=== PATIENT | male | born 1955 | race African-American/Black ===

== ENCOUNTER 2017-03-06 12:13 | Inpatient (IN) | payer OTHER ==
[2017-03-06 14:06] VITALS: BMI 23.8
--- NOTE | 2017-03-06 17:11 | HP ---
Admission [facility] Chief Complaint: I WANT TO GO TO REHAB Allergies/Adverse Reactions: Allergies Allergy/AdvReac Type Severity Reaction Status Date / Time quinine Allergy Severe Itching Verified 03/06/17 14:08 History of Present Illness: 61 YEARS OLD MALE WITH LONG HISTORY OF ALCOHOL, COCAINE, NICOTINE DEPENDENCE, HAS HYPERTENSION, HYPERTHYROID, ARTHRITIS OF BOTH KNEES POSITIVE PPD AND SCHIZOAFFECTIVE DISORDER IS ADMITTED TO REHAB Exam Limitations: No Limitations - Ebola screening Have you traveled outside of the country in the last 21 days: No Have you had contact with anyone from an Ebola affected area: No Have you been sick,other than usual withdrawal symptoms: No Do you have a fever: No - Review of Systems Constitutional: Loss of Appetite, Unintentional Wgt. Loss, Unexplained wgt Loss EENT: reports: Blurred Vision (EYE GLASSES), Dental Problems (UPPER AND LOWER) Respiratory: reports: No Symptoms reported Cardiac: reports: Other (MURMUR SINCE ) GI: reports: Poor Appetite : reports: No Symptoms Reported Musculoskeletal: reports: Joint Pain (BOTH KNEES ARTHRITIS) Integumentary: reports: No Symptoms Reported Neuro: reports: No Symptoms reported Endocrine: reports: Unexplained Weight Loss Hematology: reports: No Symptoms Reported Psychiatric: reports: Judgement Intact, Orientated x3, Anxious, Depressed Other Systems: Reviewed and Negative Patient History - Patient Medical History Hx Anemia: Yes Hx Asthma: No Hx Chronic Obstructive Pulmonary Disease (COPD): No Hx Cancer: No Hx Cardiac Disorders: No Hx Congestive Heart Failure: No Hx Hypertension: Yes Hx Hypercholesterolemia: No Hx Pacemaker: No HX Cerebrovascular Accident: No Hx Seizures: No Hx Dementia: No Hx Diabetes: No Hx Gastrointestinal Disorders: No Hx Liver Disease: No Hx Genitourinary Disorders: No Hx Sexually Transmitted Disorders: No Hx Renal Disease (ESRD): No Hx Thyroid Disease: Yes Hx Human Immunodeficiency Virus (HIV): No Hx Hepatitis C: No Hx Depression: No Hx Suicide Attempt: Yes (2000 overdose) Hx Bipolar Disorder: No Hx Schizophrenia: Yes - Patient Surgical History Past Surgical History: Yes Hx Neurologic Surgery: No Hx Cataract Extraction: No Hx Cardiac Surgery: No Hx Lung Surgery: No Hx Breast Surgery: No Hx Breast Biopsy: No Hx Abdominal Surgery: No Hx Appendectomy: No Hx Cholecystectomy: No Hx Genitourinary Surgery: No Hx Orthopedic Surgery: No Other Surgical History: 1984 oral surgery/1994 left lymph node removed Anesthesia Reaction: No - PPD History Previous Implant?: Yes Documented Results: Positive w/o proof Implanted On Prior R Admission?: No PPD to be Administered?: No - Smoking Cessation Smoking history: Current every day smoker Have you smoked in the past 12 months: Yes Aproximately how many cigarettes per day: 10 Cigars Per Day: 0 Hx Chewing Tobacco Use: No Initiated information on smoking cessation: Yes 'Breaking Loose' booklet given: 03/06/17 - Substance & Tx. History Hx Alcohol Use: Yes Hx Substance Use: Yes Substance Use Type: Alcohol, Cocaine Hx Substance Use Treatment: Yes ([facility] 03/07/17 DETOX) - Substances Abused Alcohol Route: Oral Frequency: Daily Amount used: 4-5 40 OZ BEERS Age of first use: 19 Date of Last Use: 03/01/17 Crack Route: Smoking Frequency: Daily Amount used: $30-40 Age of first use: 30 Date of Last Use: 02/28/17 Family Disease History - Family Disease History Family Disease History: [place]: Father (), Mother (), Other: Father , Mother, Brother ( hiv), Sister (/alcohol) Admission Physical Exam [facility] - Vital Signs Vital Signs: Vital Signs - 24 hr 03/06/17 03/06/17 13:29 13:59 Temperature 98.3 F 97.3 F L Pulse Rate 87 87 Respiratory 18 18 Rate Blood Pressure 140/80 140/80 - Physical General Appearance: Yes: No Apparent Distress, Appropriately Dressed, Thin HEENTM: Yes: Hearing grossly Normal, Normal ENT Inspection, Normocephalic, Normal Voice, Other (PRESCRIPTION EYE GLASSES) Respiratory: Yes: Chest Non-Tender, Lungs Clear, Normal Breath Sounds, No Respiratory Distress, No Accessory Muscle Use Neck: Yes: Supple, Trachea in good position Breast: Yes: Breasts Symetrical Cardiology: Yes: Regular Rhythm, Regular Rate, S1, S2, Murmur Abdominal: Yes: Normal Bowel Sounds, Non Tender, Soft Genitourinary: Yes: Within Normal Limits Back: Yes: Normal Inspection Musculoskeletal: Yes: full range of Motion, Gait Steady Extremities: Yes: Normal Inspection, Normal Range of Motion, Non-Tender Neurological: Yes: Fully Oriented, Alert, Motor Strength 5/5, Normal Response, Depressed Affect Integumentary: Yes: Warm Lymphatic: Yes: Within Normal Limits - Diagnostic (1) Alcohol dependence with uncomplicated withdrawal Current Visit: Yes Status: Acute (2) Cocaine dependence, uncomplicated Current Visit: Yes Status: Chronic (3) Positive PPD, treated Current Visit: Yes Status: Suspected (4) Arthritis of both knees Current Visit: Yes Status: Chronic (5) Hyperthyroidism Current Visit: Yes Status: Chronic (6) Hypertension Current Visit: Yes Status: Chronic Qualifiers: Hypertension type: essential hypertension Qualified Code(s): I10 - Essential (primary) hypertension; I10 - Essential (primary) hypertension; I10 - Essential (primary) hypertension (7) Nicotine dependence Current Visit: Yes Status: Acute Qualifiers: Nicotine product type: cigarettes Substance use status: in withdrawal Qualified Code(s): F17.213 - Nicotine dependence, cigarettes, with withdrawal; F17.213 - Nicotine dependence, cigarettes, with withdrawal (8) Weight loss Current Visit: Yes Status: Acute (9) Schizoaffective disorder Current Visit: Yes Status: Suspected Qualifiers: Schizoaffective disorder type: depressive Qualified Code(s): F25.1 - Schizoaffective disorder, depressive type; F25.1 - Schizoaffective disorder, depressive type; F25.1 - Schizoaffective disorder, depressive type; F25.1 - Schizoaffective disorder, depressive type Cleared for Admission [facility] - Detox or Rehab [facility] Level of Care: Observation Bed Detox Regimen/Protocol: Not Applicable Claeared for Rehab Admission: Yes [facility] Breath Alcohol Content Breath Alcohol Content: 0 Urine Drug Screen - Control Is Test Valid: Yes - Results Drug Screen Negative: Yes Inpatient Rehab Admission - Initial Determination Are CD services needed?: Yes Free of communicable disease: Yes Not in need of hospitalization: Yes - Rehab Admission Criteria Previous failed treatment: Yes Poor recovery environment: Yes Comorbidities: Yes Lacks judgement: No Patient is meeting Inpatient Rehab admission criteria:: Yes
[2017-03-06] MEDS ORDERED: LOPERAMIDE HCL 2 MG CAPSULE PO PRN (17:24)
[2017-03-06] MEDS ORDERED: guaiFENesin/D-METHORPHAN HB 10 ML UNIT-DOSE CUPS PO PRN (17:24)
[2017-03-06] MEDS ORDERED: MAGNESIUM CITRATE 300 ML BOTTLE PO PRN (17:24)
[2017-03-06] MEDS ORDERED: hydrOXYzine PAMOATE 50 MG CAPSULE (FP) PO PRN (17:24)
[2017-03-06] MEDS ORDERED: MENTHOL/PHENOL 1 EACH UD MM PRN (17:24)
[2017-03-06] MEDS ORDERED: NICOTINE 14 MG/24 HOURS TOPICAL PATCH TD PRN (17:24)
[2017-03-06] MEDS ORDERED: MAGNESIUM HYDROX 2400MG/30ML ORAL SUSPENSION 30 ML CUP PO PRN (17:24)
[2017-03-06] MEDS ORDERED: P-EPHED 60MG/TRIPROLIDI 2.5MG TABLET PO PRN (17:24)
[2017-03-06] MEDS ORDERED: NICOTINE POLACRILEX 2 MG GUM BUC PRN (17:24)
[2017-03-06] MEDS ORDERED: ACETAMINOPHEN 325 MG TABLET (FP) PO PRN (17:24)
[2017-03-06] MEDS: CLOTRIMAZOLE 1% CREAM 15 GM TUBE TP SCH (21:49)
[2017-03-06] MEDS: GABAPENTIN 300 MG CAPSULE (FP) PO SCH (21:50)
[2017-03-06] MEDS: traZODone HCL 100 MG TABLET (FP) PO SCH (21:50)
[2017-03-06] MEDS: risperiDONE 1 MG TABLET (FP) PO SCH (21:51)
[2017-03-06] MEDS ORDERED: GABAPENTIN 300 MG CAPSULE (FP) PO SCH (22:00)
[2017-03-06 22:15] LABS: URINE APPEARANCE CLEAR; URINE BILIRUBIN NEGATIVE (NEGATIVE); URINE BLOOD NEGATIVE (NEGATIVE); URINE COLOR STRAW; URINE GLUCOSE (UA) NEGATIVE (NEGATIVE); URINE KETONE NEGATIVE (NEGATIVE); URINE NITRITE NEGATIVE (NEGATIVE); URINE PROTEIN NEGATIVE (NEGATIVE); URINE UROBILINOGEN NEGATIVE mg/dL (0.2-1.0)
[2017-03-06 22:53] LABS: URINE LEUK ESTERASE Negative (NEGATIVE)
[2017-03-06] MEDS: THIAMINE HCL 100 MG TABLET (FP) PO SCH (23:50)
[2017-03-07 09:53] LABS: MCH 27.8 pg (25.7-33.7); MCHC 32.6 g/dl (32.0-35.9); MEAN CELL VOLUME 85.3 fl (80-96); MEAN PLT VOLUME 9.9 fl (7.5-11.1); PLATELET COUNT 151 K/MM3 (134-434); RDW 13.8 % (11.9-15.9); WHITE BLOOD COUNT 5.7 K/mm3 (4.0-10.0)
[2017-03-07 09:55] LABS: ALBUMIN 3.7 g/dl (3.4-5.0); GLUCOSE,RANDOM 75 mg/dL (74-106)
[2017-03-07] MEDS ORDERED: risperiDONE 2 MG TABLET PO SCH (10:00)
[2017-03-07 10:09] LABS: ALK PHOS 77 U/L (45-117); ANION GAP 6 (8-16); BILIRUBIN,TOTAL 0.5 mg/dL (0.2-1.0); CALCIUM 9.4 mg/dL (8.5-10.1); CO2 29 mmol/L (21-32); CREATININE 1.2 mg/dL (0.7-1.3); SGOT/AST 16 U/L (15-37); SGPT/ALT 29 U/L (12-78); TOT PROT 6.9 g/dl (6.4-8.2)
[2017-03-07] MEDS: HYDROCHLOROTHIAZIDE 25 MG TABLET (FP) PO SCH (10:12)
[2017-03-07] MEDS: PRENATAL VITAMINS W/ FOLIC ACID TABLET (FP) PO SCH (10:13)
[2017-03-07] MEDS: LISINOPRIL 20 MG TABLET (FP) PO SCH (10:13)
[2017-03-07] MEDS: GABAPENTIN 300 MG CAPSULE (FP) PO SCH ×3 (10:13→21:30)
[2017-03-07] MEDS: CLOTRIMAZOLE 1% CREAM 15 GM TUBE TP SCH ×2 (10:14→21:30)
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
[2017-03-07] MEDS: traZODone HCL 100 MG TABLET (FP) PO SCH (21:30)
[2017-03-07] MEDS: risperiDONE 1 MG TABLET (FP) PO SCH (21:30)
[2017-03-07] MEDS: THIAMINE HCL 100 MG TABLET (FP) PO SCH (21:30)
[2017-03-07] MEDS: diphenhydrAMINE HCL 50 MG CAPSULE PO PRN (21:31)
[2017-03-08] MEDS: PRENATAL VITAMINS W/ FOLIC ACID TABLET (FP) PO SCH (10:14)
[2017-03-08] MEDS: risperiDONE 1 MG TABLET (FP) PO SCH ×2 (10:14→21:26)
[2017-03-08] MEDS: LISINOPRIL 20 MG TABLET (FP) PO SCH (10:14)
[2017-03-08] MEDS: GABAPENTIN 300 MG CAPSULE (FP) PO SCH ×3 (10:15→21:26)
[2017-03-08] MEDS: CLOTRIMAZOLE 1% CREAM 15 GM TUBE TP SCH ×2 (10:15→21:27)
[2017-03-08] MEDS: HYDROCHLOROTHIAZIDE 25 MG TABLET (FP) PO SCH (10:16)
[2017-03-08] MEDS: THIAMINE HCL 100 MG TABLET (FP) PO SCH (21:26)
[2017-03-08] MEDS: traZODone HCL 100 MG TABLET (FP) PO SCH (21:26)
[2017-03-09] MEDS: GABAPENTIN 300 MG CAPSULE (FP) PO SCH ×3 (10:14→21:34)
[2017-03-09] MEDS: HYDROCHLOROTHIAZIDE 25 MG TABLET (FP) PO SCH (10:14)
[2017-03-09] MEDS: risperiDONE 1 MG TABLET (FP) PO SCH ×2 (10:14→21:35)
[2017-03-09] MEDS: PRENATAL VITAMINS W/ FOLIC ACID TABLET (FP) PO SCH (10:14)
[2017-03-09] MEDS: CLOTRIMAZOLE 1% CREAM 15 GM TUBE TP SCH ×2 (10:15→21:37)
[2017-03-09] MEDS: LISINOPRIL 20 MG TABLET (FP) PO SCH (10:15)
--- NOTE | 2017-03-09 17:38 | EKG ---
Test Reason : Blood Pressure : / mmHG Vent. Rate : 064 BPM Atrial Rate : 064 BPM P-R Int : 192 ms QRS Dur : 096 ms QT Int : 426 ms P-R-T Axes : 066 -04 -33 degrees QTc Int : 439 ms NORMAL SINUS RHYTHM T WAVE ABNORMALITIES IN II III aVF AND V5-V6 ABNORMAL ECG NO PREVIOUS ECGS AVAILABLE REPEAT EKG IF CLINICALLY INDICATED Confirmed by SANDRA NAVARRETE MD ([id number]) on 03/09/2017 5:37:44 PM Referred By: Addis Champagne Confirmed By:SANDRA NAVARRETE MD
[2017-03-09] MEDS: traZODone HCL 100 MG TABLET (FP) PO SCH (21:34)
[2017-03-09] MEDS: THIAMINE HCL 100 MG TABLET (FP) PO SCH (21:34)
[2017-03-10] MEDS: HYDROCHLOROTHIAZIDE 25 MG TABLET (FP) PO SCH (10:23)
[2017-03-10] MEDS: LISINOPRIL 20 MG TABLET (FP) PO SCH (10:23)
[2017-03-10] MEDS: GABAPENTIN 300 MG CAPSULE (FP) PO SCH ×3 (10:23→21:29)
[2017-03-10] MEDS: PRENATAL VITAMINS W/ FOLIC ACID TABLET (FP) PO SCH (10:23)
[2017-03-10] MEDS: risperiDONE 1 MG TABLET (FP) PO SCH ×3 (11:33→21:29)
[2017-03-10] MEDS: CLOTRIMAZOLE 1% CREAM 15 GM TUBE TP SCH ×2 (11:33→21:30)
[2017-03-10] MEDS: IBUPROFEN 400 MG TABLET (FP) PO PRN (15:43)
[2017-03-10] MEDS: traZODone HCL 100 MG TABLET (FP) PO SCH (21:29)
[2017-03-10] MEDS: THIAMINE HCL 100 MG TABLET (FP) PO SCH (21:29)
[2017-03-11] MEDS: LISINOPRIL 20 MG TABLET (FP) PO SCH (10:41)
[2017-03-11] MEDS: HYDROCHLOROTHIAZIDE 25 MG TABLET (FP) PO SCH (10:42)
[2017-03-11] MEDS: PRENATAL VITAMINS W/ FOLIC ACID TABLET (FP) PO SCH (10:43)
[2017-03-11] MEDS: CLOTRIMAZOLE 1% CREAM 15 GM TUBE TP SCH ×2 (10:43→21:32)
[2017-03-11] MEDS: GABAPENTIN 300 MG CAPSULE (FP) PO SCH ×3 (10:43→21:31)
[2017-03-11] MEDS: risperiDONE 1 MG TABLET (FP) PO SCH ×2 (10:44→21:31)
[2017-03-11] MEDS: THIAMINE HCL 100 MG TABLET (FP) PO SCH (21:31)
[2017-03-11] MEDS: traZODone HCL 100 MG TABLET (FP) PO SCH (21:31)
[2017-03-11] MEDS: diphenhydrAMINE HCL 50 MG CAPSULE PO PRN (21:32)
[2017-03-12] MEDS: CLOTRIMAZOLE 1% CREAM 15 GM TUBE TP SCH ×2 (10:25→21:19)
[2017-03-12] MEDS: risperiDONE 1 MG TABLET (FP) PO SCH ×2 (10:25→21:18)
[2017-03-12] MEDS: GABAPENTIN 300 MG CAPSULE (FP) PO SCH ×3 (10:25→21:18)
[2017-03-12] MEDS: LISINOPRIL 20 MG TABLET (FP) PO SCH (10:25)
[2017-03-12] MEDS: HYDROCHLOROTHIAZIDE 25 MG TABLET (FP) PO SCH (10:25)
[2017-03-12] MEDS: PRENATAL VITAMINS W/ FOLIC ACID TABLET (FP) PO SCH (10:25)
[2017-03-12] MEDS: MAG HYDROX/AL HYDROX/SIMETH 30 ML UNIT-DOSE CUP PO PRN ×2 (15:32→22:04)
[2017-03-12] MEDS: traZODone HCL 100 MG TABLET (FP) PO SCH (21:18)
[2017-03-12] MEDS: THIAMINE HCL 100 MG TABLET (FP) PO SCH (21:18)
[2017-03-13] MEDS ORDERED: INSULIN (NOVOLOG MIX 70/30) 100 UNITS/ML MDV SQ ONE (06:32)
[2017-03-13] MEDS: HYDROCHLOROTHIAZIDE 25 MG TABLET (FP) PO SCH (10:13)
[2017-03-13] MEDS: PRENATAL VITAMINS W/ FOLIC ACID TABLET (FP) PO SCH (10:13)
[2017-03-13] MEDS: CLOTRIMAZOLE 1% CREAM 15 GM TUBE TP SCH ×2 (10:14→21:22)
[2017-03-13] MEDS: risperiDONE 1 MG TABLET (FP) PO SCH ×2 (10:14→21:21)
[2017-03-13] MEDS: GABAPENTIN 300 MG CAPSULE (FP) PO SCH ×3 (10:14→21:21)
[2017-03-13] MEDS: LISINOPRIL 20 MG TABLET (FP) PO SCH (10:14)
[2017-03-13] MEDS: MAG HYDROX/AL HYDROX/SIMETH 30 ML UNIT-DOSE CUP PO PRN (16:43)
[2017-03-13] MEDS: traZODone HCL 100 MG TABLET (FP) PO SCH (21:21)
[2017-03-13] MEDS: THIAMINE HCL 100 MG TABLET (FP) PO SCH (21:21)
[2017-03-14] MEDS: HYDROCHLOROTHIAZIDE 25 MG TABLET (FP) PO SCH (10:09)
[2017-03-14] MEDS: PRENATAL VITAMINS W/ FOLIC ACID TABLET (FP) PO SCH (10:09)
[2017-03-14] MEDS: risperiDONE 1 MG TABLET (FP) PO SCH ×2 (10:09→21:25)
[2017-03-14] MEDS: LISINOPRIL 20 MG TABLET (FP) PO SCH (10:10)
[2017-03-14] MEDS: GABAPENTIN 300 MG CAPSULE (FP) PO SCH ×3 (10:10→21:25)
[2017-03-14] MEDS: CLOTRIMAZOLE 1% CREAM 15 GM TUBE TP SCH ×2 (11:57→21:25)
[2017-03-14] MEDS: THIAMINE HCL 100 MG TABLET (FP) PO SCH (21:25)
[2017-03-14] MEDS: traZODone HCL 100 MG TABLET (FP) PO SCH (21:25)
[2017-03-14] MEDS: diphenhydrAMINE HCL 50 MG CAPSULE PO PRN (21:26)
[2017-03-15] MEDS: PRENATAL VITAMINS W/ FOLIC ACID TABLET (FP) PO SCH (10:32)
[2017-03-15] MEDS: LISINOPRIL 20 MG TABLET (FP) PO SCH (10:33)
[2017-03-15] MEDS: CLOTRIMAZOLE 1% CREAM 15 GM TUBE TP SCH ×2 (10:33→21:18)
[2017-03-15] MEDS: GABAPENTIN 300 MG CAPSULE (FP) PO SCH ×3 (10:33→21:18)
[2017-03-15] MEDS: HYDROCHLOROTHIAZIDE 25 MG TABLET (FP) PO SCH (10:33)
[2017-03-15] MEDS: risperiDONE 1 MG TABLET (FP) PO SCH ×2 (10:33→21:18)
[2017-03-15] MEDS: THIAMINE HCL 100 MG TABLET (FP) PO SCH (21:18)
[2017-03-15] MEDS: diphenhydrAMINE HCL 50 MG CAPSULE PO PRN (21:18)
[2017-03-15] MEDS: traZODone HCL 100 MG TABLET (FP) PO SCH (21:18)
[2017-03-16] MEDS: LISINOPRIL 20 MG TABLET (FP) PO SCH (10:16)
[2017-03-16] MEDS: risperiDONE 1 MG TABLET (FP) PO SCH ×2 (10:16→21:20)
[2017-03-16] MEDS: CLOTRIMAZOLE 1% CREAM 15 GM TUBE TP SCH ×2 (10:16→21:20)
[2017-03-16] MEDS: HYDROCHLOROTHIAZIDE 25 MG TABLET (FP) PO SCH (10:16)
[2017-03-16] MEDS: PRENATAL VITAMINS W/ FOLIC ACID TABLET (FP) PO SCH (10:16)
[2017-03-16] MEDS: GABAPENTIN 300 MG CAPSULE (FP) PO SCH ×3 (10:16→21:20)
[2017-03-16] MEDS: IBUPROFEN 400 MG TABLET (FP) PO PRN (12:47)
[2017-03-16] MEDS: traZODone HCL 100 MG TABLET (FP) PO SCH (21:20)
[2017-03-16] MEDS: THIAMINE HCL 100 MG TABLET (FP) PO SCH (21:20)
[2017-03-16] MEDS: diphenhydrAMINE HCL 50 MG CAPSULE PO PRN (21:20)
[2017-03-17 06:43] VITALS: BP 118/71; PULSE 66; TEMP 97.8
[2017-03-17] MEDS: CLOTRIMAZOLE 1% CREAM 15 GM TUBE TP SCH (09:56)
[2017-03-17] MEDS: PRENATAL VITAMINS W/ FOLIC ACID TABLET (FP) PO SCH (09:56)
[2017-03-17] MEDS: GABAPENTIN 300 MG CAPSULE (FP) PO SCH (09:56)
[2017-03-17] MEDS: LISINOPRIL 20 MG TABLET (FP) PO SCH (09:56)
[2017-03-17] MEDS: risperiDONE 1 MG TABLET (FP) PO SCH (09:56)
[2017-03-17] MEDS: HYDROCHLOROTHIAZIDE 25 MG TABLET (FP) PO SCH (09:57)
--- NOTE | 2017-03-17 10:40 | PN ---
Psychiatric Progress Note Vital Signs: Vital Signs Period Temp Pulse Resp BP Sys/Saba Pulse Ox Last 24 Hr 97.8 F 66 16-16 118/71 Date of Session: 03/17/17 Chief Complaint:: discharge visit HPI: Patient has addressed alcohol, cocaine dependence comorbid Schzioaffective disorder. ROS: HTN and Arthritis medically managed. Current Medications: Active Medications Generic Name Dose Route Start Last Admin Trade Name Freq PRN Reason Stop Dose Admin Acetaminophen 650 mg 03/06/17 17:24 Tylenol - PO Q4H PRN PAIN Al Hydroxide/Mg Hydroxide 30 ml 03/06/17 17:24 03/13/17 16:43 Mylanta Oral Suspension - PO 30 ml Q6H PRN Administration DYSPEPSIA Clotrimazole 1 applic 03/06/17 22:00 03/17/17 09:56 Lotrimin 1% Cream - TP Not Given BID JESSICA Diphenhydramine HCl 50 mg 03/06/17 22:00 03/16/17 21:20 Benadryl - PO 50 mg HSMR1 PRN Administration INSOMNIA Eucalyptus/Menthol/Phenol/Sorbitol 1 each 03/06/17 17:24 Cepastat Lozenge - MM Q4H PRN SORE THROAT Gabapentin 900 mg 03/06/17 22:00 03/16/17 21:20 Neurontin - PO 900 mg HS JESSICA Administration Gabapentin 600 mg 03/07/17 10:00 03/17/17 09:56 Neurontin - PO 600 mg BID@1000,1500 JESSICA Administration Guaifenesin 10 ml 03/06/17 17:24 Robitussin Dm - PO Q6H PRN COUGH Hydrochlorothiazide 25 mg 03/07/17 10:00 03/17/17 09:57 Hctz - PO 25 mg DAILY JESSICA Administration Hydroxyzine Pamoate 50 mg 03/06/17 17:24 Vistaril - PO Q4H PRN AGITATION Ibuprofen 400 mg 03/06/17 17:24 03/16/17 12:47 Motrin - PO 400 mg Q6H PRN Administration SEVERE PAIN Lisinopril 40 mg 03/07/17 10:00 03/17/17 09:56 Prinivil PO 40 mg DAILY JESSICA Administration Loperamide HCl 4 mg 03/06/17 17:24 Imodium - PO Q6H PRN DIARRHEA Magnesium Citrate 300 ml 03/06/17 17:24 Citroma - PO Q48H PRN CONSTIPATION Magnesium Hydroxide 30 ml 03/06/17 17:24 03/13/17 07:08 Milk Of Magnesia - PO 30 ml DAILY PRN Administration CONSTIPATION Nicotine 14 mg 03/06/17 17:24 Nicoderm Patch - TD DAILY PRN WITHDRAWAL(CONT SUBST) Nicotine Polacrilex 2 mg 03/06/17 17:24 Nicorette Gum - BUC Q2H PRN NICOTINE REPLACEMENT RX Multivit/Folic Acid/Iron 1 tab 03/07/17 10:00 03/17/17 09:56 Vitamins ([facility]) - PO 1 tab DAILY JESSICA Administration Pseudoephedrine/Triprolidine 1 combo 03/06/17 17:24 Actifed - PO TID PRN NASAL CONGESTION Risperidone 1 mg 03/06/17 22:00 03/16/17 21:20 Risperdal - PO 1 mg HS JESSICA Administration Risperidone 1 mg 03/08/17 10:00 03/17/17 09:56 Risperdal - PO 1 mg DAILY JESSICA Administration Thiamine HCl 100 mg 03/06/17 22:00 03/16/17 21:20 Vitamin B1 - PO 100 mg HS JESSICA Administration Trazodone HCl 100 mg 03/06/17 22:00 03/16/17 21:20 Desyrel - PO 100 mg HS JESSICA Administration Current Side Effect: No Lab tests ordered: No Lab tests reviewed: Yes Provider note:: Patient has ocmplted today this program and met his idetntified goals, will contontinue to address his isssues at [facility] outpatient Program, He focused on insigts he gained in this treatment and on importance of changning attitudes for the utilization of supports to prevent relapses. Medications well tolerated, patient reports he feeling better, scripts ptovided for 30 days, stable for discharge today. Total face to face time:: 30 Mental Status Exam - Mental Status Exam Alert and Oriented to: Time, Place, Person Cognitive Function: Good Patient Appearance: Well Groomed Mood: Hopeful Affect: Appropriate, Mood Congruent Patient Behavior: Appropriate, Cooperative Speech Pattern: Clear, Appropriate Voice Loudness: Normal Thought Process: Intact, Goal Oriented Thought Disorder: Not Present Hallucinations: Denies Suicidal Ideation: Denies Homicidal Ideation: Denies Insight/Judgement: Fair Sleep: Fair Appetite: Fair Muscle strength/Tone: Normal Gait/Station: Normal Psychiatric Treatment Plan - Problem List (1) Nicotine dependence Current Visit: Yes Qualifiers: Nicotine product type: cigarettes Substance use status: in withdrawal Qualified Code(s): F17.213 - Nicotine dependence, cigarettes, with withdrawal; F17.213 - Nicotine dependence, cigarettes, with withdrawal (2) Hyperthyroidism Current Visit: Yes (3) Schizoaffective disorder Current Visit: Yes Qualifiers: Schizoaffective disorder type: depressive Qualified Code(s): F25.1 - Schizoaffective disorder, depressive type; F25.1 - Schizoaffective disorder, depressive type; F25.1 - Schizoaffective disorder, depressive type; F25.1 - Schizoaffective disorder, depressive type (4) Alcohol dependence Current Visit: Yes (5) Cocaine dependence Current Visit: Yes
== END 2017-03-17 11:45 | disposition home or self-care (01) | DRG 772 ==
LOC: YASAS 12:13 → Y5N 17:50
PROVIDERS: ADMIT Psychiatry & Neurology Psychiatry; ATTEND Psychiatry & Neurology Psychiatry
PROC: HZ42ZZZ Group Counseling for Substance Abuse Treatment, Cognitive-Behavioral (ICD-10-PCS; principal; 2017-03-06)
DX: F10.20 Alcohol dependence, uncomplicated (principal); F14.20 Cocaine dependence, uncomplicated; F17.213 Nicotine dependence, cigarettes, with withdrawal; F25.1 Schizoaffective disorder, depressive type; E05.90 Thyrotoxicosis, unspecified without thyrotoxic crisis or storm; I10 Essential (primary) hypertension; R76.11 Nonspecific reaction to tuberculin skin test without active tuberculosis; M13.862 Other specified arthritis, left knee; M13.861 Other specified arthritis, right knee; R01.1 Cardiac murmur, unspecified; Z87.898 Personal history of other specified conditions; Z88.8 Allergy status to other drugs, medicaments and biological substances; Z91.5 Personal history of self-harm
CPT/HCPCS: 36415; 71020-TC; 80053; 81003; 85027; 86593; 93005; 93010; J2794

== ENCOUNTER 2019-06-26 11:33 | Inpatient (IN) | payer OTHER ==
[~2019-06-26 11:33] MED LIST: chlordiazePOXIDE HCL 25 MG CAPSULE PO SCH
[2019-06-26 12:24] VITALS: BMI 22.4
--- NOTE | 2019-06-26 14:08 | HP ---
CIWA Score Nausea/Vomitin Muscle Tremors: 4-Moderate,w/Arms Extend Anxiety: 4-Mod. Anxious/Guarded Agitation: 1-Slight > Activity Paroxysmal Sweats: 1-Minimal Palms Moist Orientation: 1-Uncertain about Date Tacttile Disturbances: 1-Very Mild Itch/Numbness Auditory Disturbances: 0-None Visual Disturbances: 0-None Headache: 2-Mild CIWA-Ar Total Score: 16 - Admission Criteria [facility]ASAS Guidelines: Admission for Medically Managed Detox: Requires at least one of the followin. CIWA greater than 12 2. Seizures within the past 24 hours 3. Delirium tremens within the past 24 hours 4. Hallucinations within the past 24 hours 5. Acute intervention needed for co occurring medical disorder 6. Acute intervention needed for co occurring psychiatric disorder 7. Severe withdrawal that cannot be handled at a lower level of care (continued vomiting, continued diarrhea, abnormal vital signs) requiring intravenous medication and/or fluids 8. Patient presents the following: CIWA greater than 12 Admission Criteria Met: Admission criteria met Admitting History and Physical - Admission History Source: Patient, Medical Record Limitations to Obtaining History: No Limitations - Past Medical History Cardiovascular: Yes: HTN Gastrointestinal: Yes: GERD Psych: Yes: Addictions, Depression, Schizophrenia Musculoskeletal: Yes: Osteoarthritis Endocrine: Yes: Hyperthyroidism - Smoking History Smoking history: Current every day smoker Have you smoked in the past 12 months: Yes Aproximately how many cigarettes per day: 20 - Alcohol/Substance Use Hx Alcohol Use: Yes History of Substance Use: reports: Cocaine - Social History Usual Living Arrangement: Yes: Alone, Other (lives in assisted) ADL: Support Services (on disability) Admission ROS S - HPI Chief Complaint: I need help, I don't want to drink anymore - it's killing me - I miss my old life - I had a job years ago, I want my life to be in order Allergies/Adverse Reactions: Allergies Allergy/AdvReac Type Severity Reaction Status Date / Time quinine Allergy Severe Itching Verified 06/26/19 12:18 History of Present Illness: 63 yo gentleman here for detox from alcohol, also using cocaine. Last time here for treatment was 2016 - - states he has been going back and forth from [place]. Denies seizure, does have black outs. States he drinks first thing in the morning and gets sick if he does not (shakes, anxious). He is on disability for psychiatric reasons - sees psych at [facility] but not on medication currently. Exam Limitations: No Limitations - Ebola screening Have you traveled outside of the country in the last 21 days: No (N) Have you had contact with anyone from an Ebola affected area: No Do you have a fever: No - Review of Systems Constitutional: Loss of Appetite Respiratory: reports: No Symptoms reported Cardiac: reports: No Symptoms Reported GI: reports: Nausea, Poor Appetite, Indigestion, Abdominal cramping : reports: Frequency Musculoskeletal: reports: Joint Pain (knees) Integumentary: reports: Dryness Neuro: reports: Headache, Tremors Endocrine: reports: No Symptoms Reported Hematology: reports: No Symptoms Reported Psychiatric: reports: Judgement Intact, Mood/Affect Appropiate, Anxious Other Systems: Reviewed and Negative Patient History - Patient Medical History Hx Anemia: No Hx Asthma: No Hx Chronic Obstructive Pulmonary Disease (COPD): No Hx Cancer: No Hx Cardiac Disorders: No Hx Congestive Heart Failure: No Hx Hypertension: Yes (on meds) Hx Hypercholesterolemia: No Hx Pacemaker: No HX Cerebrovascular Accident: No Hx Seizures: No Hx Dementia: No Hx Diabetes: No Hx Gastrointestinal Disorders: No Hx Liver Disease: No Hx Genitourinary Disorders: No Hx Sexually Transmitted Disorders: Yes (gonorrhea ) Hx Renal Disease (ESRD): No Hx Thyroid Disease: Yes (non adherent for years with methimazol) Hx Human Immunodeficiency Virus (HIV): No Hx Hepatitis C: No Hx Depression: Yes (hospitalized years ago) Hx Suicide Attempt: Yes (2000 overdose) Hx Bipolar Disorder: No Hx Schizophrenia: Yes (no meds currently, sees psych) - Patient Surgical History Past Surgical History: Yes Hx Neurologic Surgery: No Hx Cataract Extraction: No Hx Cardiac Surgery: No Hx Lung Surgery: No Hx Breast Surgery: No Hx Breast Biopsy: No Hx Abdominal Surgery: No Hx Appendectomy: No Hx Cholecystectomy: No Hx Genitourinary Surgery: No Hx Orthopedic Surgery: No Other Surgical History: 1984 oral surgery/1994 left lymph node in groin area removed Anesthesia Reaction: No - PPD History Previous Implant?: Yes Documented Results: Positive w/o proof Implanted On Prior [facility] Admission?: No Date: 03/07/17 (cxr negative) PPD to be Administered?: No - Reproductive History Patient is a Female of Child Bearing Age (11 -55 yrs old): No - Smoking Cessation Smoking history: Current every day smoker Have you smoked in the past 12 months: Yes Aproximately how many cigarettes per day: 20 Cigars Per Day: 0 Hx Chewing Tobacco Use: No Initiated information on smoking cessation: Yes 'Breaking Loose' booklet given: 06/26/19 (give on floor) - Substance & Tx. History Hx Alcohol Use: Yes Hx Substance Use: Yes Substance Use Type: Alcohol, Cocaine Hx Substance Use Treatment: Yes (detox, rehab) - Substances abused Alcohol Substance route: Oral Frequency: Daily Amount used: 6-8 (40 oz beers) Age of first use: 19 Date of last use: 06/25/19 Crack Substance route: Smoking Frequency: 3-6 times per week Amount used: $17/day Age of first use: 30 Date of last use: 06/25/19 Admission Physical Exam [facility] - Vital Signs Vital Signs: Vital Signs - 24 hr 06/26/19 12:21 Temperature 98.1 F Pulse Rate 66 Respiratory 18 Rate Blood Pressure 139/82 - Physical General Appearance: Yes: Nourished, Appropriately Dressed, Moderate Distress, Thin, Tremorous, Anxious HEENTM: Yes: EOMI, Hearing grossly Normal, Normocephalic, Normal Voice, Pharynx Normal Respiratory: Yes: Normal Breath Sounds Neck: Yes: No masses,lesions,Nodules, Supple Breast: Yes: Breast Exam Deferred Cardiology: Yes: Regular Rhythm, Regular Rate Abdominal: Yes: Flat, Soft Genitourinary: Yes: Frequency Back: Yes: Normal Inspection Musculoskeletal: Yes: full range of Motion, Gait Steady, Joint Stiffness (knee osteoarthritis) Extremities: Yes: Normal Inspection, Normal Range of Motion, Non-Tender, Tremors Neurological: Yes: Alert, Motor Strength 5/5, Normal Mood/Affect, Normal Response Integumentary: Yes: Normal Color, Dry, Warm Lymphatic: Yes: Within Normal Limits - Diagnostic (1) Alcohol dependence with uncomplicated withdrawal Current Visit: Yes Status: Chronic (2) Cocaine dependence Current Visit: Yes Status: Chronic Qualifiers: Substance use status: uncomplicated Qualified Code(s): F14.20 - Cocaine dependence, uncomplicated (3) Nicotine dependence Current Visit: Yes Status: Acute Qualifiers: Nicotine product type: cigarettes Substance use status: in withdrawal Qualified Code(s): F17.213 - Nicotine dependence, cigarettes, with withdrawal (4) Weight loss Current Visit: Yes Status: Chronic (5) Arthritis of both knees Current Visit: Yes Status: Chronic (6) Hypertension Current Visit: Yes Status: Chronic Qualifiers: Hypertension type: essential hypertension Qualified Code(s): I10 - Essential (primary) hypertension (7) Positive PPD, treated Current Visit: Yes Status: Chronic Cleared for Admission [facility] - Detox or Rehab S Level of Care: Medically Managed Detox Regimen/Protocol: Librium Breathalyzer - Breathalyzer Breathalyzer: 0 Inpatient Rehab Admission - Rehab Decision to Admit Inpatient rehab admission?: No
[2019-06-26] MEDS ORDERED: hydrOXYzine PAMOATE 25 MG CAPSULE (FP) PO PRN (14:22)
[2019-06-26] MEDS ORDERED: MENTHOL/PHENOL 1 EACH UD MM PRN (14:22)
[2019-06-26] MEDS ORDERED: MAG HYDROX/AL HYDROX/SIMETH 30 ML UNIT-DOSE CUP PO PRN (14:22)
[2019-06-26] MEDS ORDERED: IBUPROFEN 400 MG TABLET (FP) PO PRN (14:22)
[2019-06-26] MEDS ORDERED: ACETAMINOPHEN 325 MG TABLET (FP) PO PRN ×2 (14:22)
[2019-06-26] MEDS ORDERED: MAGNESIUM CITRATE 300 ML BOTTLE PO PRN (14:22)
[2019-06-26] MEDS ORDERED: chlordiazePOXIDE HCL 25 MG CAPSULE PO ONE (14:22)
[2019-06-26] MEDS ORDERED: BISMUTH SUBSALICYLATE 524 MG/30 ML UD PO PRN (14:22)
[2019-06-26] MEDS ORDERED: MAGNESIUM HYDROX 2400MG/30ML ORAL SUSPENSION 30 ML CUP PO PRN (14:22)
[2019-06-26] MEDS ORDERED: METHOCARBAMOL 500 MG TABLET PO PRN (14:22)
[2019-06-26] MEDS ORDERED: chlordiazePOXIDE HCL 25 MG CAPSULE PO PRN (14:22)
[2019-06-26] MEDS: NICOTINE 21 MG/24 HOURS TOPICAL PATCH TD SCH (16:50)
[2019-06-26] MEDS ORDERED: MELATONIN 5 MG TABLETS PO PRN (22:00)
[2019-06-26] MEDS: THIAMINE HCL 100 MG TABLET (FP) PO SCH (22:12)
[2019-06-27] MEDS: chlordiazePOXIDE HCL 25 MG CAPSULE PO SCH ×4 (06:31→22:11)
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
[2019-06-27] MEDS: LISINOPRIL 20 MG TABLET (FP) PO SCH (10:28)
[2019-06-27] MEDS: PRENATAL VITAMINS W/ FOLIC ACID TABLET (FP) PO SCH (10:28)
[2019-06-27] MEDS: HYDROCHLOROTHIAZIDE 25 MG TABLET (FP) PO SCH (10:29)
[2019-06-27] MEDS: NICOTINE 21 MG/24 HOURS TOPICAL PATCH TD SCH (10:29)
[2019-06-27] MEDS: amLODIPine BESYLATE 5 MG TABLET (FP) PO SCH (10:30)
[2019-06-27 11:07] LABS: HEMATOCRIT 36.7 % (35.4-49); HEMOGLOBIN 12.2 GM/dL (11.7-16.9); MCH 29.1 pg (25.7-33.7); MCHC 33.3 g/dl (32.0-35.9); MEAN CELL VOLUME 87.3 fl (80-96); MEAN PLT VOLUME 8.8 fl (7.5-11.1); PLATELET COUNT 141 K/MM3 (134-434); RDW 14.5 % (11.9-15.9); WHITE BLOOD COUNT 4.6 K/mm3 (4.0-10.0)
[2019-06-27 11:20] LABS: ALBUMIN 2.9 g/dl (3.4-5.0); BILIRUBIN,TOTAL 0.5 mg/dL (0.2-1); CALCIUM 8.5 mg/dL (8.5-10.1); CREATININE 1.1 mg/dL (0.55-1.3); POTASSIUM 3.7 mmol/L (3.5-5.1); TOT PROT 5.7 g/dl (6.4-8.2)
--- NOTE | 2019-06-27 12:16 | EKG ---
Test Reason : Blood Pressure : / mmHG Vent. Rate : 065 BPM Atrial Rate : 065 BPM P-R Int : 176 ms QRS Dur : 098 ms QT Int : 422 ms P-R-T Axes : 072 -22 -07 degrees QTc Int : 438 ms NORMAL SINUS RHYTHM INCOMPLETE RIGHT BUNDLE BRANCH BLOCK MODERATE VOLTAGE CRITERIA FOR LVH, MAY BE NORMAL VARIANT NONSPECIFIC T WAVE ABNORMALITY WHEN COMPARED WITH ECG OF 06-MAR-2017 21:49, NO SIGNIFICANT CHANGE WAS FOUND Confirmed by ALISSON HARMON MD ([id number]) on 06/27/2019 12:16:39 PM Referred By: Confirmed By:ALISSON HARMON MD
--- NOTE | 2019-06-27 13:00 | PN ---
S CIWA - CIWA Score Nausea/Vomitin-Mild Nausea/No Vomiting Muscle Tremors: 3 Anxiety: 3 Agitation: 3 Paroxysmal Sweats: 3 Orientation: 0-Oriented Tacttile Disturbances: 0-None Auditory Disturbances: 0-None Visual Disturbances: 0-None Headache: 0-None Present CIWA-Ar Total Score: 13 S Progress Note (SOAP) Subjective: Tremor, nervous, agitated Objective: 06/27/19 12:55 Last Vital Signs Temp Pulse Resp BP Pulse Ox 98.2 F 60 17 136/72 06/27/19 09:53 06/27/19 09:53 06/27/19 09:53 06/27/19 09:53 Elevated b/p noted: has htn, on medication Laboratory Tests 06/27/19 06/27/19 06:50 06:50 WBC 4.6 RBC 4.20 Hgb 12.2 Hct 36.7 MCV 87.3 MCH 29.1 MCHC 33.3 RDW 14.5 Plt Count 141 MPV 8.8 D Sodium 143 Potassium 3.7 Chloride 111 H Carbon Dioxide 28 Anion Gap 4 L BUN 12.0 Creatinine 1.1 Est GFR (CKD-EPI)AfAm 83.53 Est GFR (CKD-EPI)NonAf 72.07 Random Glucose 103 Calcium 8.5 Total Bilirubin 0.5 AST 24 ALT 38 Alkaline Phosphatase 72 Total Protein 5.7 L Albumin 2.9 L Labs reviewed Assessment: 06/27/19 12:56 Withdrawal sxs Plan: Continue detox Encouraged PO water intake HTN: on norvasc, HCTZ and Lisinopril (not sure why 3 antihypertensive class of medications), monitor b/p, follow up with PCP for management
--- NOTE | 2019-06-27 18:56 | PN ---
S Progress Note Note: Patient is referred for 2 small areas of sores on the lip, he has mild pain. He denies any other symptoms. Will leave open to air and monitor.
[2019-06-27] MEDS: THIAMINE HCL 100 MG TABLET (FP) PO SCH (22:11)
[2019-06-27] MEDS: traZODone HCL 50 MG TABLET (FP) PO SCH (22:11)
[2019-06-28] MEDS ORDERED: chlordiazePOXIDE HCL 10 MG CAPSULE PO PRN
[2019-06-28] MEDS: chlordiazePOXIDE HCL 10 MG CAPSULE PO SCH ×4 (06:07→22:00)
[2019-06-28] MEDS: LISINOPRIL 20 MG TABLET (FP) PO SCH (10:11)
[2019-06-28] MEDS: HYDROCHLOROTHIAZIDE 25 MG TABLET (FP) PO SCH (10:11)
[2019-06-28] MEDS: amLODIPine BESYLATE 5 MG TABLET (FP) PO SCH (10:11)
[2019-06-28] MEDS: NICOTINE 21 MG/24 HOURS TOPICAL PATCH TD SCH (10:12)
[2019-06-28] MEDS: PRENATAL VITAMINS W/ FOLIC ACID TABLET (FP) PO SCH (10:12)
[2019-06-28] MEDS ORDERED: guaiFENesin 200 MG/10 ML 10 ML UNIT-DOSE CUPS PO PRN (10:32)
--- NOTE | 2019-06-28 10:33 | PN ---
[facility] CIWA - CIWA Score Nausea/Vomitin-No Nausea/No Vomiting Muscle Tremors: None Anxiety: 1-Mildly Anxious Agitation: 0-Normal Activity Paroxysmal Sweats: 1-Minimal Palms Moist Orientation: 1-Uncertain about Date Tacttile Disturbances: 0-None Auditory Disturbances: 0-None Visual Disturbances: 0-None Headache: 0-None Present CIWA-Ar Total Score: 3 BHS Progress Note (SOAP) Subjective: Doing well, asking for treatment for fever blister on upper and lower lip. Describes lip at tingling/stings Objective: 06/28/19 10:26 Laboratory Last Values WBC 4.6 K/mm3 (4.0-10.0) 06/27/19 06:50 RBC 4.20 M/mm3 (4.00-5.60) 06/27/19 06:50 Hgb 12.2 GM/dL (11.7-16.9) 06/27/19 06:50 Hct 36.7 % (35.4-49) 06/27/19 06:50 MCV 87.3 fl (80-96) 06/27/19 06:50 MCH 29.1 pg (25.7-33.7) 06/27/19 06:50 MCHC 33.3 g/dl (32.0-35.9) 06/27/19 06:50 RDW 14.5 % (11.9-15.9) 06/27/19 06:50 Plt Count 141 K/MM3 (134-434) 06/27/19 06:50 MPV 8.8 fl (7.5-11.1) D 06/27/19 06:50 Sodium 143 mmol/L (136-145) 06/27/19 06:50 Potassium 3.7 mmol/L (3.5-5.1) 06/27/19 06:50 Chloride 111 mmol/L (98-107) H 06/27/19 06:50 Carbon Dioxide 28 mmol/L (21-32) 06/27/19 06:50 Anion Gap 4 MMOL/L (8-16) L 06/27/19 06:50 BUN 12.0 mg/dL (7-18) 06/27/19 06:50 Creatinine 1.1 mg/dL (0.55-1.3) 06/27/19 06:50 Est GFR (CKD-EPI)AfAm 83.53 06/27/19 06:50 Est GFR (CKD-EPI)NonAf 72.07 06/27/19 06:50 Random Glucose 103 mg/dL (74-106) 06/27/19 06:50 Calcium 8.5 mg/dL (8.5-10.1) 06/27/19 06:50 Total Bilirubin 0.5 mg/dL (0.2-1) 06/27/19 06:50 AST 24 U/L (15-37) 06/27/19 06:50 ALT 38 U/L (13-61) 06/27/19 06:50 Alkaline Phosphatase 72 U/L (45-117) 06/27/19 06:50 Total Protein 5.7 g/dl (6.4-8.2) L 06/27/19 06:50 Albumin 2.9 g/dl (3.4-5.0) L 06/27/19 06:50 RPR Titer Nonreactive (NONREACTIVE) 06/27/19 06:50 Vital Signs Temperature 98.2 F 06/28/19 09:27 Pulse Rate 68 06/28/19 09:27 Respiratory Rate 16 06/28/19 09:27 Blood Pressure 131/79 06/28/19 09:27 O2 Sat by Pulse Oximetry (%) Gnl: WDWN, in no distress MS: awake, alert, attentive, follows complex commands Resp: dry cough Motor: moves limbs well Skin: small ~ 3mm irregular lesion on upper and lower, midline, lip 06/28/19 10:33 Assessment: 06/28/19 10:28 1. Alcohol withdrawal 2. suspect oral Herpes lesions on lips 06/28/19 10:34 Plan: 1. Alcohol withdrawal protocol 2. add Valtrex for lesions on lips 3. Robitussin for cough
[2019-06-28] MEDS: valACYclovir HCL 500 MG TABLET (FP) PO SCH ×2 (14:00→21:57)
[2019-06-28] MEDS: traZODone HCL 50 MG TABLET (FP) PO SCH (21:57)
[2019-06-28] MEDS: THIAMINE HCL 100 MG TABLET (FP) PO SCH (21:57)
[2019-06-29] MEDS: chlordiazePOXIDE HCL 10 MG CAPSULE PO SCH ×2 (05:57→17:16)
[2019-06-29] MEDS: amLODIPine BESYLATE 5 MG TABLET (FP) PO SCH (10:16)
[2019-06-29] MEDS: PRENATAL VITAMINS W/ FOLIC ACID TABLET (FP) PO SCH (10:16)
[2019-06-29] MEDS: NICOTINE 21 MG/24 HOURS TOPICAL PATCH TD SCH (10:16)
[2019-06-29] MEDS: HYDROCHLOROTHIAZIDE 25 MG TABLET (FP) PO SCH (10:16)
[2019-06-29] MEDS: LISINOPRIL 20 MG TABLET (FP) PO SCH (10:16)
--- NOTE | 2019-06-29 11:49 | PN ---
S CIWA - CIWA Score Nausea/Vomitin-No Nausea/No Vomiting Muscle Tremors: 2 Anxiety: 1-Mildly Anxious Agitation: 0-Normal Activity Paroxysmal Sweats: No Perspiration Orientation: 0-Oriented Tacttile Disturbances: 0-None Auditory Disturbances: 0-None Visual Disturbances: 0-None Headache: 0-None Present CIWA-Ar Total Score: 3 BHS Progress Note (SOAP) Subjective: feeling better anxiety Objective: 06/29/19 11:49 Vital Signs Temperature 97.3 F L 06/29/19 09:16 Pulse Rate 84 06/29/19 09:16 Respiratory Rate 17 06/29/19 09:16 Blood Pressure 141/75 06/29/19 09:16 O2 Sat by Pulse Oximetry (%) aaox3 ambulating no acute distress Assessment: 06/29/19 11:49 mild withdrawals Plan: d/c in am
[2019-06-29] MEDS: traZODone HCL 50 MG TABLET (FP) PO SCH (22:09)
[2019-06-29] MEDS: THIAMINE HCL 100 MG TABLET (FP) PO SCH (22:09)
[2019-06-30] MEDS ORDERED: chlordiazePOXIDE HCL 10 MG CAPSULE PO ONE (05:00)
--- NOTE | 2019-06-30 08:35 | DS ---
[facility] Detox Discharge Summary Admission Date: 06/26/19 Discharge Date: 06/30/19 - History Present History: Alcohol Dependence, Cocaine Dependence - Physical Exam Results Vital Signs: Vital Signs Temperature 98.1 F 06/30/19 07:17 Pulse Rate 67 06/30/19 07:17 Respiratory Rate 18 06/30/19 07:17 Blood Pressure 120/73 06/30/19 07:17 O2 Sat by Pulse Oximetry (%) Pertinent Admission Physical Exam Findings: Vital Signs Temperature 98.1 F 06/30/19 07:17 Pulse Rate 67 06/30/19 07:17 Respiratory Rate 18 06/30/19 07:17 Blood Pressure 120/73 06/30/19 07:17 O2 Sat by Pulse Oximetry (%) Laboratory Tests 06/27/19 06/27/19 06/27/19 06:50 06:50 06:50 WBC 4.6 RBC 4.20 Hgb 12.2 Hct 36.7 MCV 87.3 MCH 29.1 MCHC 33.3 RDW 14.5 Plt Count 141 MPV 8.8 D Sodium 143 Potassium 3.7 Chloride 111 H Carbon Dioxide 28 Anion Gap 4 L BUN 12.0 Creatinine 1.1 Est GFR (CKD-EPI)AfAm 83.53 Est GFR (CKD-EPI)NonAf 72.07 Random Glucose 103 Calcium 8.5 Total Bilirubin 0.5 AST 24 ALT 38 Alkaline Phosphatase 72 Total Protein 5.7 L Albumin 2.9 L RPR Titer Nonreactive aaox3 ambulating no acute distress - Treatment Hospital Course: Detox Protocol Followed, Detoxed Safely, Responded well, Discharged Condition Good, Rehab Referral Accepted - Medication Discharge Medications: Ambulatory Orders Hydrochlorothiazide [Hctz -] 25 mg PO DAILY 03/06/17 Lisinopril [Prinivil -] 40 mg PO DAILY 03/06/17 Amlodipine Besylate [Norvasc -] 5 mg PO DAILY 06/26/19 - Diagnosis (1) Alcohol dependence with uncomplicated withdrawal Current Visit: Yes Status: Chronic (2) Cocaine dependence Current Visit: Yes Status: Chronic Qualifiers: Substance use status: uncomplicated Qualified Code(s): F14.20 - Cocaine dependence, uncomplicated (3) Substance induced mood disorder Current Visit: Yes Status: Acute (4) Substance-induced sleep disorder Current Visit: Yes Status: Acute (5) Arthritis of both knees Current Visit: Yes Status: Chronic (6) Hypertension Current Visit: Yes Status: Chronic Qualifiers: Hypertension type: essential hypertension Qualified Code(s): I10 - Essential (primary) hypertension (7) Nicotine dependence Current Visit: Yes Status: Chronic Qualifiers: Nicotine product type: cigarettes Substance use status: uncomplicated Qualified Code(s): F17.210 - Nicotine dependence, cigarettes, uncomplicated (8) Weight loss Current Visit: Yes Status: Chronic (9) Positive PPD, treated Current Visit: Yes Status: Resolved (10) Hyperthyroidism Current Visit: No Status: Chronic (11) Schizoaffective disorder Current Visit: No Status: Chronic Qualifiers: Schizoaffective disorder type: depressive Qualified Code(s): F25.1 - Schizoaffective disorder, depressive type - AMA Did Patient Leave Against Medical Advice: No
[2019-06-30] MEDS: PRENATAL VITAMINS W/ FOLIC ACID TABLET (FP) PO SCH (09:17)
[2019-06-30] MEDS: HYDROCHLOROTHIAZIDE 25 MG TABLET (FP) PO SCH (09:17)
[2019-06-30] MEDS: amLODIPine BESYLATE 5 MG TABLET (FP) PO SCH (09:17)
[2019-06-30] MEDS: LISINOPRIL 20 MG TABLET (FP) PO SCH (09:17)
[2019-06-30 09:18] VITALS: BP 129/73; PULSE 72; TEMP 97.3
[2019-06-30] MEDS: NICOTINE 21 MG/24 HOURS TOPICAL PATCH TD SCH (09:18)
== END 2019-06-30 09:29 | disposition home or self-care (01) | DRG 774 ==
LOC: YASAS 11:33 → UNDOADMIN 14:16 → Y3N 14:16 → Y6N 14:26
PROVIDERS: ADMIT Allergy & Immunology; ATTEND Allergy & Immunology
PROC: HZ2ZZZZ Detoxification Services for Substance Abuse Treatment (ICD-10-PCS; principal; 2019-06-26)
DX: F10.230 Alcohol dependence with withdrawal, uncomplicated (principal); F14.20 Cocaine dependence, uncomplicated; F17.210 Nicotine dependence, cigarettes, uncomplicated; F19.24 Other psychoactive substance dependence with psychoactive substance-induced mood disorder; F19.282 Other psychoactive substance dependence with psychoactive substance-induced sleep disorder; F25.1 Schizoaffective disorder, depressive type; I10 Essential (primary) hypertension; R63.4 Abnormal weight loss; M17.0 Bilateral primary osteoarthritis of knee; B00.1 Herpesviral vesicular dermatitis; E05.90 Thyrotoxicosis, unspecified without thyrotoxic crisis or storm; K21.9 Gastro-esophageal reflux disease without esophagitis; M06.9 Rheumatoid arthritis, unspecified; Z91.14 Patient's other noncompliance with medication regimen; Z87.438 Personal history of other diseases of male genital organs; Z91.048 Other nonmedicinal substance allergy status; Z62.810 Personal history of physical and sexual abuse in childhood; Z91.410 Personal history of adult physical and sexual abuse
CPT/HCPCS: 36415; 71046-TC-FY; 80053; 85027; 86593; 93005; 93010